=== PATIENT | female | born 1975 | race Caucasian/White ===

== ENCOUNTER 2019-05-24 10:55 | Inpatient (IN) | payer OTHER ==
[~2019-05-24] VITALS: Ht 167.6 cm; Wt 97.8 kg
[2019-05-24] MEDS ORDERED: ASCORBIC ACID 500 MG TAB PO ONE ×2 (11:30→13:15)
[2019-05-24] MEDS ORDERED: SODIUM CHLORIDE 0.9% 1,000 ML IV ONE (11:30)
[2019-05-24] MEDS ORDERED: ZINC SULFATE 220mg CAP or TAB PO ONE ×2 (11:30→13:15)
[2019-05-24] MEDS ORDERED: AZITHROMYCIN 500MG/ 250ML 250 ML IV ONE (11:30)
[2019-05-24] MEDS ORDERED: ERGOCALCIFEROL 50,000 UNIT(1.25MG) CAP PO SCH (11:30)
[2019-05-24 12:05] LABS: Basophils # (auto) 0 10 ^3/uL (0-0.2); Basophils % (auto) 0.5 % (0.0-2.0); Eosinophils # (auto) 0.1 10 ^3/uL (0-0.8); Eosinophils % (auto) 0.6 % (0.0-7.0); Hematocrit 45.3 % (36.0-46.0); Hemoglobin 15.1 g/dL (12.2-16.2); Lymphocytes # (auto) 2.9 10 ^3/uL (0.4-5.4); Lymphocytes % (auto) 31.7 % (10.0-50.0); Mean Corpuscular Hemoglobin 30.1 pg (28.0-32.0); Mean Corpuscular Hgb Conc. 33.3 g/dL (32.0-36.0); Mean Corpuscular Volume 90.5 fL (80.0-100.0); Monocytes # (auto) 0.7 10 ^3/uL (0-1.3); Monocytes % (auto) 7.9 % (0.0-12.0); Neutrophils # (auto) 5.5 10 ^3/uL (1.6-8.6); Neutrophils % (auto) 59.3 % (37.0-80.0); Nucleated Red Blood Cells % 0.1 %; Platelet Count (auto) 259 10^3/uL (140-450); Red Blood Cells 5.01 10^6/uL (4.0-5.20); Red Cell Distribution Width 14.3 % (11.8-14.3); White Blood Cell 9.3 10^3/uL (4.4-10.8)
[2019-05-24 12:17] LABS: Albumin 3.9 g/dL (3.4-5.0); Calcium 8.5 mg/dL (8.5-10.1); Potassium 3.7 mmol/L (3.5-5.1)
[2019-05-24 12:26] LABS: Bilirubin, Total 0.5 mg/dL (0.2-1.0); CRP High Sensitivity 1.15 mg/dL (< 0.3); Total Protein 8.1 g/dL (6.4-8.2)
[2019-05-24] MEDS ORDERED: NITROGLYCERIN 0.4 MG SL TAB SL PRN (12:45)
[2019-05-24] MEDS ORDERED: ACETAMINOPHEN 325 MG TAB PO PRN (12:45)
[2019-05-24] MEDS ORDERED: MORPHINE SULF INJ 2 MG/ML SYRINGE 1ML IV PRN ×2 (12:45)
[2019-05-24] MEDS ORDERED: HYDROcodone-ACET 5/325MG TAB PO PRN (12:45)
[2019-05-24] MEDS ORDERED: ONDANSETRON HCL 4 MG/2 ML VIAL IV PRN (12:45)
[2019-05-24] MEDS ORDERED: ERGOCALCIFEROL 50,000 UNIT(1.25MG) CAP PO ONE (13:15)
[2019-05-24] MEDS ORDERED: ENOXAPARIN SOD 40 MG/0.4 ML SYRINGE SC ONE (13:15)
[2019-05-24] MEDS ORDERED: FAMOTIDINE 20 MG TAB PO ONE (13:15)
[2019-05-24 16:58] LABS: Urine Bacteria FEW /hpf (None Seen); Urine Blood Negative /uL (Negative); Urine Mucus FEW (None Seen); Urine Specific Gravity 1.022 (1.001-1.035); Urine WBC 2 /hpf (0 - 5)
[2019-05-24 17:00] VITALS: BP 118/83
[2019-05-24] MEDS ORDERED: IOHEXOL 350 MG/ML 100ML IJ ONE (17:14)
[2019-05-24] MEDS ORDERED: SODIUM CHLORIDE 0.9% 1,000 ML IV SCH (20:15)
[2019-05-24 21:00] VITALS: BP 102/73
[2019-05-24] MEDS: FAMOTIDINE 20 MG TAB PO SCH (22:12)
[2019-05-25] VITALS (9 sets, daily range): BP systolic 106–137; BP diastolic 60–95
[2019-05-25] MEDS: ZINC SULFATE 220mg CAP or TAB PO SCH (09:32)
[2019-05-25] MEDS: FAMOTIDINE 20 MG TAB PO SCH ×2 (09:32→21:27)
[2019-05-25] MEDS: ASCORBIC ACID 500 MG TAB PO SCH (09:35)
[2019-05-25] MEDS: ENOXAPARIN SOD 40 MG/0.4 ML SYRINGE SC SCH (09:36)
[2019-05-25] MEDS ORDERED: AZITHROMYCIN 500MG/ 250ML 250 ML IV SCH (10:00)
[2019-05-25] MEDS ORDERED: ERGOCALCIFEROL 50,000 UNIT(1.25MG) CAP PO SCH (10:00)
[2019-05-25] MEDS ORDERED: ZOLP5TAB5 PO (17:44)
[2019-05-25] MEDS ORDERED: DIPH25TA54 PO ×2 (17:46→17:52)
[2019-05-25] MEDS ORDERED: LOPE2CAP PO (17:47)
[2019-05-25] MEDS ORDERED: OMEP-335 PO (17:50)
[2019-05-25] MEDS: ALBUTEROL SULF HFA 90MCG INH 200DOSE IN SCH (22:10)
[2019-05-26 02:05] VITALS: BP 113/80
[2019-05-26 05:04] VITALS: BP 105/66
[2019-05-26] MEDS: ALBUTEROL SULF HFA 90MCG INH 200DOSE IN SCH ×3 (05:18→21:58)
[2019-05-26 09:13] VITALS: BP 110/74
[2019-05-26] MEDS: FAMOTIDINE 20 MG TAB PO SCH ×2 (10:48→21:58)
[2019-05-26] MEDS: ZINC SULFATE 220mg CAP or TAB PO SCH (10:48)
[2019-05-26] MEDS: ENOXAPARIN SOD 40 MG/0.4 ML SYRINGE SC SCH (10:49)
[2019-05-26] MEDS: AZITHROMYCIN 250 MG TAB PO SCH (10:49)
[2019-05-26] MEDS: ASCORBIC ACID 500 MG TAB PO SCH (10:49)
[2019-05-26 13:00] VITALS: BP 112/78
[2019-05-26 17:40] VITALS: BP 108/69
[2019-05-26 20:00] VITALS: BP 115/73
[2019-05-27] VITALS: BP 103/75
[2019-05-27 04:00] VITALS: BP 107/73
[2019-05-27] MEDS: ALBUTEROL SULF HFA 90MCG INH 200DOSE IN SCH ×2 (06:25→14:32)
[2019-05-27 09:00] VITALS: BP 108/74
[2019-05-27 09:59] LABS: Basophils # (auto) 0 10 ^3/uL (0-0.2); Basophils % (auto) 0.5 % (0.0-2.0); Eosinophils # (auto) 0.2 10 ^3/uL (0-0.8); Eosinophils % (auto) 2.3 % (0.0-7.0); Hematocrit 43.6 % (36.0-46.0); Hemoglobin 14.7 g/dL (12.2-16.2); Lymphocytes # (auto) 2.7 10 ^3/uL (0.4-5.4); Lymphocytes % (auto) 34.7 % (10.0-50.0); Mean Corpuscular Hemoglobin 30.1 pg (28.0-32.0); Mean Corpuscular Hgb Conc. 33.7 g/dL (32.0-36.0); Mean Corpuscular Volume 89.4 fL (80.0-100.0); Monocytes # (auto) 0.5 10 ^3/uL (0-1.3); Monocytes % (auto) 6.8 % (0.0-12.0); Neutrophils # (auto) 4.3 10 ^3/uL (1.6-8.6); Neutrophils % (auto) 55.7 % (37.0-80.0); Platelet Count (auto) 318 10^3/uL (140-450); Red Blood Cells 4.88 10^6/uL (4.0-5.20); Red Cell Distribution Width 13.7 % (11.8-14.3); White Blood Cell 7.7 10^3/uL (4.4-10.8)
[2019-05-27] MEDS: AZITHROMYCIN 250 MG TAB PO SCH (10:00)
[2019-05-27] MEDS: ZINC SULFATE 220mg CAP or TAB PO SCH (10:00)
[2019-05-27] MEDS: ASCORBIC ACID 500 MG TAB PO SCH (10:00)
[2019-05-27] MEDS: ENOXAPARIN SOD 40 MG/0.4 ML SYRINGE SC SCH (10:00)
[2019-05-27] MEDS: FAMOTIDINE 20 MG TAB PO SCH (10:00)
[2019-05-27 10:21] LABS: Albumin 3.6 g/dL (3.4-5.0); BUN/Creatinine Ratio 17.3; Calcium 8.9 mg/dL (8.5-10.1); Magnesium 2.4 mg/dL (1.6-2.6); Potassium 3.9 mmol/L (3.5-5.1)
[2019-05-27 10:23] LABS: Bilirubin, Total 0.4 mg/dL (0.2-1.0); Total Protein 7.5 g/dL (6.4-8.2)
[2019-05-27 13:00] VITALS: BP 125/83
[2019-05-27 15:05] VITALS: BP 125/83
== END 2019-05-27 18:56 | disposition home or self-care (01) | DRG 177 ==
LOC: ER 10:55 → TELE 10:56 → TELE-EAST 14:45
PROVIDERS: ADMIT Internal Medicine; ATTEND Internal Medicine
DX: U07.1 COVID-19 (principal); J12.89 Other viral pneumonia; R06.02 Shortness of breath; R09.02 Hypoxemia; K58.9 Irritable bowel syndrome, unspecified; E66.01 Morbid (severe) obesity due to excess calories; Z68.34 Body mass index [BMI] 34.0-34.9, adult; Z80.9 Family history of malignant neoplasm, unspecified; Z83.3 Family history of diabetes mellitus
CPT/HCPCS: 36415; 71045; 71275; 80053; 81001; 82728; 83605; 83735; 85025; 85379; 86141; 87040; 87070; 87086; 87804; 87880; 93005; 94640; G0378